=== PATIENT | male | born 1995 | race Caucasian/White ===

== ENCOUNTER 2018-02-01 19:40 | Emergency (ER) | payer MEDICAID | END 2018-02-01 22:48 | disposition home or self-care (01) | LOC: D.ER 19:40 | DX: S21.111A Laceration without foreign body of right front wall of thorax without penetration into thoracic cavity, initial encounter (principal); W26.0XXA Contact with knife, initial encounter; Y93.89 Activity, other specified; Y92.010 Kitchen of single-family (private) house as the place of occurrence of the external cause ==

== ENCOUNTER 2018-06-03 11:08 | Emergency (ER) | payer MEDICAID ==
[~2018-06-03] VITALS: Ht 175.3 cm; Wt 70.5 kg
[2018-06-03 11:45] VITALS: Ht 175.3 cm; Wt 70.5 kg
[2018-06-03] MEDS ORDERED: KEFLEX500 MG PO (12:27)
[2018-06-03 13:01] VITALS: BP 128/75
== END 2018-06-03 13:02 | disposition home or self-care (01) ==
LOC: D.ER 11:08
DX: S61.411A Laceration without foreign body of right hand, initial encounter (principal); W29.3XXA Contact with powered garden and outdoor hand tools and machinery, initial encounter; Y93.89 Activity, other specified; Y92.019 Unspecified place in single-family (private) house as the place of occurrence of the external cause; F17.200 Nicotine dependence, unspecified, uncomplicated

== ENCOUNTER 2018-07-27 14:30 | Emergency (ER) | payer MEDICAID ==
[~2018-07-27] VITALS: Ht 175.3 cm; Wt 70.5 kg
[~2018-07-27 14:30] MED LIST: KEFLEX500 MG PO
[2018-07-27 14:59] VITALS: Ht 175.3 cm; Wt 70.5 kg
[2018-07-27] MEDS ORDERED: CYCLOBENZAPRINE10 MG PO (16:49)
[2018-07-27] MEDS ORDERED: ACETAMINOPHEN500 M1 PO (16:49)
[2018-07-27] MEDS ORDERED: MACROBID100 MG PO (16:49)
[2018-07-27] MEDS ORDERED: IBUPROFEN800 MG PO (16:50)
[2018-07-27 17:51] VITALS: BP 138/55
== END 2018-07-27 17:52 | disposition home or self-care (01) ==
LOC: D.ER 14:30
DX: S63.91XA Sprain of unspecified part of right wrist and hand, initial encounter (principal); V29.9XXA Motorcycle rider (driver) (passenger) injured in unspecified traffic accident, initial encounter; Y93.89 Activity, other specified; Y92.410 Unspecified street and highway as the place of occurrence of the external cause; M79.1 Myalgia; F17.200 Nicotine dependence, unspecified, uncomplicated